=== PATIENT | female | born 1965 | race Caucasian/White ===

== ENCOUNTER 2021-10-03 17:21 | Observation (INO) | payer SELFPAY ==
[~2021-10-03] VITALS: Ht 157.5 cm; Wt 56.9 kg
--- NOTE | 2021-10-03 18:52 | ED Neurological Problem ---
General Chief Complaint: Neuro-Stroke Like Symptoms Stated Complaint: CONFUSION - SLURRED SPEECH Nursing Triage Note: PT CO OF CONFUSION, SPEECH SLOW AND IMPAIRED AT TIMES, PT HAS NO TASTE AT THIS X. PT WAS UNABLE TO WRITE NAME AT [facility]. STATES HAS BEEN SLEEPING ALOT. PT TESTED NEG COVID AT [facility] TODAY Source: patient Exam Limitations: no limitations History of Present Illness Date Seen by Provider: Oct 03, 2021 Time Seen by Provider: 18:30 Initial Comments Patient is a 56-year-old female who appears much older than stated age presents to the emergency department with her sister chief complaint of feeling "not right", confused, loss of taste a week to 10 days ago. She lives alone. She never sees doctors. She takes no daily medications. Her sister and she relate a story that she was at normal baseline function 3 weeks to 1 month ago and the sister called her and she was complaining of the above-stated symptoms. Since that time the sisters been trying to get her to seek medical care but has not been able to coordinate it. She states the more she is seeing her the more confused and acting not like her normal self she appears. [place] and the patient was found after his sister looked everywhere sitting on the ground in front of a truck. She states she has these "staring spells". Patient denies any headache. She did have back pain the night before all the symptoms started. She is a smoker. Occasionally smokes marijuana. No alcohol use. Previous section is her only surgery. Allergic to aspirin "it makes me bleed". Sister states she was tested for COVID at [facility] earlier today however they do not know the results. Sister tested herself this morning and the patient also states she tested herself a week ago and it was negative. She is not vaccinated. No shortness of breath, cough, fevers. No abdominal pain nausea vomiting diarrhea. No urinary complaints. No rashes or swelling. All other review of systems reviewed and negative except as stated. Timing/Duration: other (3 weeks) Severity: moderate Associated Symptoms: confusion, slurred speech ("speech not right") Allergies and Home Medications Allergies Coded Allergies: aspirin (Verified Allergy, Unknown, 10/03/21) Patient Home Medication List Home Medication List Reviewed: Yes Review of Systems Review of Systems Constitutional: see HPI Eyes: No Symptoms Reported Ears, Nose, Mouth, Throat: no symptoms reported Respiratory: no symptoms reported Cardiovascular: no symptoms reported Gastrointestinal: no symptoms reported Genitourinary: no symptoms reported Musculoskeletal: back pain Skin: no symptoms reported Psychiatric/Neurological: Cognitive Dysfunction All Other Systems Reviewed Negative Unless Noted: Yes Past Uufwmwb-Qffghu-Qmjeoo Hx Patient Social History Tobacco Use?: Yes Tobacco type used: Cigarettes Smoking Status: Current Everyday Smoker Substance use?: Yes Substance type: Marijuana Substance frequency: Once in a while Alcohol Use?: No Pt feels they are or have been: No Physical Exam Vital Signs Vital Signs - First Documented 10/03/21 17:35 Temp 36.9 Pulse 81 Resp 18 B/P (MAP) 132/94 (107) Pulse Ox 100 Capillary Refill : Less Than 3 Seconds Height, Weight, BMI Height: '" Weight: lbs. oz. kg; 23.00 BMI Method: General Appearance: WD/WN, no apparent distress, thin HEENT: PERRL/EOMI Neck: full range of motion, supple Respiratory: lungs clear, normal breath sounds, no respiratory distress, no accessory muscle use Cardiovascular: regular rate, rhythm Gastrointestinal: normal bowel sounds, non tender, soft Extremities: normal range of motion, non-tender, normal inspection, no pedal edema Neurologic/Psychiatric: reel winder II-XII nml as tested, alert, oriented x 3, other (flat affect - takes a few seconds for her to answer questions (sister states this is not like her normal affect)) Crainal Nerves: normal hearing, normal speech, PERRL; No abnormal eye position, No facial asymmetry, No facial droop, No facial weakness; tongue deviation to R (minimal) Coordination/Gait: normal gait Motor/Sensory: no motor deficit, no sensory deficit, no pronator drift Skin: normal color, warm/dry, other (slight swelling to dorsum of right foot with macular erythematous rash noted (tinea?). lesser amount of swelling and serythema noted to the dorsum of the left foot. Both areas nontender) Stroke NIH Stroke Scale Assessment Select: Initial Level of Consciousness: 0=Alert (0), Level of Consciousness- Questions: 0=Answers both month/age (0), LOC Commands: 0=Performs both tasks (0), Gaze: Normal (0), Visual Carlson: 0=No visual loss (0), Facial Movement (Facial Paresis): 0=Normal symmetrical mnt (0), Motor Function-Arms Right: 0=No drift (0), Motor Function-Arms Left: 0=No drift (0), Motor Function-Legs Right: 0=No drift (0), Motor Function-Legs Left: 0=No drift (0), Sensory: 0=Normal:no loss (0), Best Language: 0=No aphasia (0), Dysarthria: 0=Normal (0), Total: 0 Progress/Results/Core Measures Results/Orders Lab Results Laboratory Tests Test 10/03/21 17:34 10/03/21 18:10 10/03/21 18:53 10/03/21 19:36 Range/Units Urine Color YELLOW Urine Clarity CLEAR Urine pH 5.5 5-9 Urine Specific Carlisle 1.015 L 1.016-1.022 Urine Protein NEGATIVE NEGATIVE Urine Glucose (UA) NEGATIVE NEGATIVE Urine Ketones NEGATIVE NEGATIVE Urine Nitrite NEGATIVE NEGATIVE Urine Bilirubin NEGATIVE NEGATIVE Urine Urobilinogen 0.2 < = 1.0 MG/DL Urine Leukocyte Esterase NEGATIVE NEGATIVE Urine RBC (Auto) NEGATIVE NEGATIVE Urine RBC NONE /HPF Urine WBC RARE /HPF Urine Squamous Epithelial Cells 2-5 /HPF Urine Crystals NONE /LPF Urine Bacteria FEW H /HPF Urine Casts NONE /LPF Urine Mucus SMALL H /LPF Urine Culture Indicated YES White Blood Count 9.6 4.3-11.0 10^3/uL Red Blood Count 4.31 3.80-5.11 10^6/uL Hemoglobin 14.2 11.5-16.0 g/dL Hematocrit 44 35-52 % Mean Corpuscular Volume 103 H 80-99 fL Mean Corpuscular Hemoglobin 33 25-34 pg Mean Corpuscular Hemoglobin Concent 32 32-36 g/dL Red Cell Distribution Width 13.4 10.0-14.5 % Platelet Count 339 130-400 10^3/uL Mean Platelet Volume 11.0 9.0-12.2 fL Immature Granulocyte % (Auto) 0 % Neutrophils (%) (Auto) 58 42-75 % Lymphocytes (%) (Auto) 30 12-44 % Monocytes (%) (Auto) 7 0-12 % Eosinophils (%) (Auto) 3 0-10 % Basophils (%) (Auto) 1 0-10 % Neutrophils # (Auto) 5.6 1.8-7.8 10^3/uL Lymphocytes # (Auto) 2.9 1.0-4.0 10^3/uL Monocytes # (Auto) 0.7 0.0-1.0 10^3/uL Eosinophils # (Auto) 0.3 0.0-0.3 10^3/uL Basophils # (Auto) 0.1 0.0-0.1 10^3/uL Immature Granulocyte # (Auto) 0.0 0.0-0.1 10^3/uL Glucometer 95 70-110 MG/DL Prothrombin Time 13.7 12.2-14.7 SEC INR Comment 1.0 0.8-1.4 Activated Partial Thromboplast Time 32 24-35 SEC D-Dimer <= 0.27 0.00-0.49 UG/ML Sodium Level 142 135-145 MMOL/L Potassium Level 4.0 3.6-5.0 MMOL/L Chloride Level 105 98-107 MMOL/L Carbon Dioxide Level 25 21-32 MMOL/L Anion Gap 12 5-14 MMOL/L Blood Urea Nitrogen 9 7-18 MG/DL Creatinine 0.73 0.60-1.30 MG/DL Estimat Glomerular Filtration Rate 97 BUN/Creatinine Ratio 12 Glucose Level 87 70-105 MG/DL Calcium Level 10.4 H 8.5-10.1 MG/DL Corrected Calcium 10.2 H 8.5-10.1 MG/DL Total Bilirubin 0.3 0.1-1.0 MG/DL Aspartate Amino Transf (AST/SGOT) 17 5-34 U/L Alanine Aminotransferase (ALT/SGPT) 17 0-55 U/L Alkaline Phosphatase 110 40-136 U/L Troponin I 0.396 *H <0.028 NG/ML Total Protein 7.8 6.4-8.2 GM/DL Albumin 4.3 3.2-4.5 GM/DL My Orders Orders - LORA NOVAK MD Cbc With Automated Diff (10/03/21 18:44) Protime With Inr (10/03/21 18:44) Partial Thromboplastin Time (10/03/21 18:44) Comprehensive Metabolic Panel (10/03/21 18:44) Fibrin Degradation Products (10/03/21 18:44) Troponin I Bakari (10/03/21 18:44) Ua Culture If Indicated (10/03/21 18:44) Chest 1 View, Ap/Pa Only (10/03/21 18:44) Ekg Tracing (10/03/21 18:44) Nothing By Mouth (10/03/21 Dinner) Accucheck Stat ONCE (10/03/21 18:44) Ed Iv/Invasive Line Start (10/03/21 18:44) Ed Iv/Invasive Line Start (10/03/21 18:44) Vital Signs Stroke Patient Q15M (10/03/21 18:44) Ct Head Wo-R/O Stroke (10/03/21 18:44) O2 (10/03/21 18:44) Intake & Output 06,14,22 (10/03/21 18:44) Monitor-Rhythm Ecg Trace Only (10/03/21 18:44) Dysphagia Screening Tool Q10MX1 (10/03/21 18:44) Post Thrombolytic Adminstratio (10/03/21 18:44) Lipid Panel (10/04/21 06:00) Urine Culture (10/03/21 17:34) Vital Signs/I&O 10/03/21 17:35 Temp 36.9 Pulse 81 Resp 18 B/P (MAP) 132/94 (107) Pulse Ox 100 Blood Pressure Mean: 107 Progress Progress Note #1: Time: 22:47 Progress Note Attempted to get recommendations about treatment/admission with Dr. Estes at [facility] in [place]. I spoke with her at approximately 10:15 PM. She states that she believes the patient would best be served at a tertiary care center. Call was placed to , pending return call at this time. Patient's labs all look good except she has an isolated elevated troponin at 0.396. The patient had previously denied chest pain, shortness of breath etc. She has no significant findings on EKG, normal sinus rhythm at 74 bpm. Q waves noted in the septal leads but no ST segment elevation or depression or ectopy. Her vital signs have all been stable. She takes no daily medications, she is allergic to aspirin. Aspirin was not given. We have been giving her updates as we have been calling various facilities for further recommendations and plan of care. Progress Note #2: Time: 23:56 Progress Note Discussed with neurosurgeon Dr. Lakhani at 2313. He states that he will have his tumor coordinator reach out to [facility] tomorrow. We are faxing a facesheet with contact information to [facility]. He did ask if we could possibly do CTs of her chest abdomen and pelvis with contrast to help expedite work-up. I discussed the case with Dr. Patten on for the hospitalist service, will admit her for this purpose as well as to trend her troponin, keep her on telemetry and further evaluation. Patient is comfortable with this plan of care. We will also have health care social worker see her. Initial ECG Impression Date: Oct 03, 2021 Initial ECG Impression Time: 18:51 Initial ECG Rate: 74 Initial ECG Rhythm: Normal Sinus Initial ECG Intervals: Normal Comment No ectopy, no ST segment elevation or depression is noted. Q waves in leads V1 and V2 Diagnostic Imaging Diagonstic Imaging: CT Comments [facility] [place] NAME: MARICARMEN CHURCHILL [facility] REC#: [id number] PT STATUS: REG ER : 1965 PHYSICIAN: LOAR NOVAK MD ADMIT DATE: 10/03/21/ER Signed Date of Exam:10/03/21 CT HEAD WO-R/O STROKE INDICATION: Altered mental status and abnormal speech and lethargy. TECHNIQUE: Multiple contiguous axial images were obtained through the brain without the use of intravenous contrast. Auto Exposure Controls were utilized during the CT exam to meet ALARA standards for radiation dose reduction. There is no prior study for comparison. FINDINGS: There is an area of inhomogeneous mass effect in the left periventricular white matter suspicious for a neoplastic lesion. This area measured about 3.9 x 2.2 cm in the axial plane. There is some mild surrounding vasogenic edema. There is slight midline shift. There is no subdural or epidural collection. There is no hemorrhage. There is no hyperdense vessel sign. Calvarial windows are unremarkable. IMPRESSION: There is a mass lesion in the right periventricular region as described above with some mild vasogenic edema. The finding is worrisome for neoplasm. Recommend MRI brain pre and post IV contrast for further characterization. There is no intracranial hemorrhage. Dictated by: Dictated on workstation # [id number] Dict: 10/03/211913 Trans: 10/03/211938 [id number] Interpreted by: MARIA ALEJANDRA MARQUEZ MD Electronically signed by: MARIA ALEJANDRA MARQUEZ MD 10/03/211938 Diagonstic Imaging: Xray Plain Films/CT/US/NM/MRI: chest Comments [facility] [place] NAME: MARICARMEN CHURCHILL [facility] REC#: [id number] PT STATUS: REG ER : 1965 PHYSICIAN: LORA NOVAK MD ADMIT DATE: 10/03/21/ER Signed Date of Exam:10/03/21 CHEST 1 VIEW, AP/PA ONLY INDICATION: Stroke Frontal chest obtained at 0703 p.m. Heart and mediastinal silhouette are normal in appearance. The lungs are clear. There is no pneumothorax or pleural fluid. IMPRESSION: Negative chest. Dictated by: Dictated on workstation # [id number] Dict: 10/03/211912 Trans: 10/03/211938 [facility] [id number] Interpreted by: MARIA ALEJANDRA MARQUEZ MD Electronically signed by: MARIA ALEJANDRA MARQUEZ MD 10/03/211938 Departure Communication (Admissions) Time/Spoke to Admitting Phy: 23:[address] Patten Impression Primary Impression: Brain tumor Disposition: ADMITTED INPATIENT Condition: Stable Admissions Decision to Admit Reason: Admit from ER (General) Decision to Admit/Date: Oct 04, 2021 Time/Decision to Admit Time: 00:01 Departure-Patient Inst. Referrals: NO,LOCAL PHYSICIAN (PCP/Family) Primary Care Physician LORA NOVAK MD Oct 03, 2021 18:52
[2021-10-03 19:08] LABS: BILIRUBIN,URINE NEGATIVE (NEGATIVE); CLARITY,URINE CLEAR; COLOR,URINE YELLOW; GLUCOSE, URINE (UA) NEGATIVE (NEGATIVE); KETONES,URINE NEGATIVE (NEGATIVE); LEUKOCYTE ESTERASE ,URINE NEGATIVE (NEGATIVE); NITRITE,URINE NEGATIVE (NEGATIVE); PH,URINE 5.5 (5-9); PROTEIN,URINE NEGATIVE (NEGATIVE)
--- NOTE | 2021-10-03 19:15 | Diagnostic Imaging Report ---
INDICATION: Stroke Frontal chest obtained at 0703 p.m. Heart and mediastinal silhouette are normal in appearance. The lungs are clear. There is no pneumothorax or pleural fluid. IMPRESSION: Negative chest. Dictated by: Dictated on workstation # [id number]
--- NOTE | 2021-10-03 19:21 | Diagnostic Imaging Report ---
INDICATION: Altered mental status and abnormal speech and lethargy. TECHNIQUE: Multiple contiguous axial images were obtained through the brain without the use of intravenous contrast. Auto Exposure Controls were utilized during the CT exam to meet ALARA standards for radiation dose reduction. There is no prior study for comparison. FINDINGS: There is an area of inhomogeneous mass effect in the left periventricular white matter suspicious for a neoplastic lesion. This area measured about 3.9 x 2.2 cm in the axial plane. There is some mild surrounding vasogenic edema. There is slight midline shift. There is no subdural or epidural collection. There is no hemorrhage. There is no hyperdense vessel sign. Calvarial windows are unremarkable. IMPRESSION: There is a mass lesion in the right periventricular region as described above with some mild vasogenic edema. The finding is worrisome for neoplasm. Recommend MRI brain pre and post IV contrast for further characterization. There is no intracranial hemorrhage. Dictated by: Dictated on workstation # [id number]
[2021-10-03 19:28] LABS: BASOPHILS # (AUTO) 0.1 10^3/uL (0.0-0.1); BASOPHILS % (AUTO) 1 % (0-10); EOSINOPHILS # (AUTO) 0.3 10^3/uL (0.0-0.3); EOSINOPHILS % (AUTO) 3 % (0-10); HEMATOCRIT 44 % (35-52); HEMOGLOBIN 14.2 g/dL (11.5-16.0); LYMPHOCYTES # (AUTO) 2.9 10^3/uL (1.0-4.0); LYMPHOCYTES % (AUTO) 30 % (12-44); MEAN CORPUSCULAR HEMOGLOBIN 33 pg (25-34); MEAN CORPUSCULAR HGB CONC 32 g/dL (32-36); MEAN CORPUSCULAR VOLUME 103 fL (80-99); MONOCYTES # (AUTO) 0.7 10^3/uL (0.0-1.0); MONOCYTES % (AUTO) 7 % (0-12); NEUTROPHILS # (AUTO) 5.6 10^3/uL (1.8-7.8); NEUTROPHILS % (AUTO) 58 % (42-75); PLATELET COUNT 339 10^3/uL (130-400); WHITE BLOOD COUNT 9.6 10^3/uL (4.3-11.0)
[2021-10-03 19:29] LABS: BACTERIA,URINE FEW /HPF; WBC,URINE RARE /HPF
[2021-10-03 20:05] LABS: FIBRIN DEGRADATION PRODUCTS <= 0.27 UG/ML (0.00-0.49); PARTIAL THROMBOPLASTIN TIME 32 SEC (24-35); PROTHROMBIN TIME PATIENT 13.7 SEC (12.2-14.7)
[2021-10-03 20:06] LABS: ALBUMIN 4.3 GM/DL (3.2-4.5); BILIRUBIN,TOTAL 0.3 MG/DL (0.1-1.0); CALCIUM 10.4 MG/DL (8.5-10.1); CREATININE SERUM 0.73 MG/DL (0.60-1.30); TOTAL PROTEIN 7.8 GM/DL (6.4-8.2)
[2021-10-04 00:55] VITALS: BP 101/64
[2021-10-04] MEDS ORDERED: diphenhydrAMINE 25 MG TAB (BENADRYL) PO PRN (01:30)
[2021-10-04] MEDS ORDERED: ACETAMINOPHEN 500 MG TAB (TYLENOL) PO PRN (01:30)
[2021-10-04] MEDS ORDERED: ONDANSETRON 4 MG/2 ML (SDV) Z0FRAN IV PRN (01:30)
[2021-10-04] MEDS ORDERED: ALPRAZolam 0.25 MG (XANAX) TAB PO PRN (01:30)
[2021-10-04] MEDS: NS IV 1000 ML 1,000 ML IV SCH ×3 (01:34→13:28)
[2021-10-04 02:26] VITALS: BP 132/94
[2021-10-04] MEDS ORDERED: RT-ALBUTEROL SULF 2.5 MG/3 ML PRE-MIX VIAL INH PRN (02:45)
[2021-10-04 04:01] VITALS: BP 94/51
[2021-10-04 07:53] VITALS: BP 94/63
[2021-10-04] MEDS ORDERED: NS 100 ML (IVPB) BAG IV ONE (09:45)
[2021-10-04] MEDS ORDERED: CATHETER FLUSH 10 ML SYR IV PRN (09:45)
[2021-10-04] MEDS ORDERED: IOHEXOL 350 MG/ML 100 ML (OMNIPAQUE 350) VIAL IV ONE (09:45)
[2021-10-04] MEDS ORDERED: HOLD METFORMIN - RECEIVED CONTRAST 20 ML VIAL IV SCH (09:45)
[2021-10-04 11:23] VITALS: BP 108/70
--- NOTE | 2021-10-04 11:31 | Diagnostic Imaging Report ---
EXAMINATION: CT chest with intravenous contrast, CT abdomen and pelvis without and with intravenous contrast. TECHNIQUE: Pre and post intravenous contrast axial imaging of the abdomen and pelvis and post contrast axial imaging of the chest were performed. All CT scans use one or more of the following dose optimizing techniques: automated exposure control, MA and/or KvP adjustment based on patient size and exam type or iterative reconstruction. HISTORY: Brain mass. COMPARISON: None available. FINDINGS: There is no edema or pneumonia. No pleural effusion. No pneumothorax. No suspicious nodules. There is no axillary or supraclavicular lymphadenopathy. There is no mediastinal lymphadenopathy. Heart size is normal. There are mild coronary artery calcifications. No pericardial effusion. Aorta is normal in caliber. The liver is normal without focal lesion. There is no biliary ductal dilation. Gallbladder is normal. Pancreas is normal. Spleen is normal. Adrenal glands are normal. The kidneys are normal. There is no hydronephrosis. Urinary bladder is normal. Bowel is normal in caliber without obstruction or inflammation. No free fluid or air. No abdominal or pelvic lymphadenopathy. Aorta is normal in caliber without aneurysm. There are no suspicious osseus lesions. IMPRESSION: 1. No malignancy in the chest, abdomen or pelvis. Dictated by: Dictated on workstation # [id number]
--- NOTE | 2021-10-04 14:27 | Discharge Inst-Simple/Standard ---
Discharge Inst-Standard Patient Instructions/Follow Up Plan of Care/Instructions/FU: Please continue to take your medications as written. Please follow up with your primary care doctor to follow up this hospital stay. Activity as Tolerated: Yes Discharge Diet: No Restrictions Return to The Hospital For: Chest pain, shortness of breath, fever, weakness, if you feel you are getting worse. JARED SANFORD MD Oct 04, 2021 14:27
[2021-10-04 15:34] VITALS: BP 108/70
--- NOTE | 2021-10-04 15:52 | Short Stay Summary-Hospitalist ---
History of Present Illness HPI/Chief Complaint Patient is a 56-year-old female with no past medical history who presented to the emergency department due to confusion. Her sister provides most of the history. She states over the past 3 to 4 weeks she has just been acting not right. She has been having difficulty with word finding. Patient has not been to a doctor in quite some time and so her sister was helping her get established but because of her mentation she brought her to an urgent care yesterday. Urgent care was concerned that she had had a stroke so referred her to the emergency department. CT of her head revealed a mass. She denies any known history of malignancy. She reports feeling about the same today. Lab work-up was done as well which revealed a slightly elevated troponin. ER discussed the case with [facility] neurosurgery and neurosurgery who recommended admission here as no urgent need for neurosurgical intervention. Patient has no complaints to me and is hopeful to be able to go home. Source: patient Date Seen 10/04/21 Time Seen by a Provider: 15:47 Attending Physician No,Local Physician PCP Admitting Physician: Ghada Patten MD Attending Physician: Ghada Patten MD Referring Physician Date of Admission Oct 03, 2021 at 23:50 Home Medications & Allergies Home Medications Reviewed patient Home Medication Reconciliation performed by pharmacy medication reconciliations graphics edit technician and/or nursing. Patients Allergies have been reviewed. Allergies Allergies Coded Allergies aspirin (Verified Allergy, Unknown, 10/03/21) Past Olgmfca-Srsjyf-Iypmmi Hx Patient Social History Tobacco Use?: Yes Tobacco type used: Cigarettes Smoking Status: Current Everyday Smoker Use of E-Cig and/or Vaping dev: No E-Cig or Vaping type used: Marijuana Use of E-Cig and/or Vaping Miguel: Never a User Substance use?: Yes Substance type: Marijuana Substance frequency: Couple times a week Alcohol Use?: No Pt feels they are or have been: No Immunizations Up To Date Tetanus Booster (TDap): Unknown Current Status status: No status: No Advance Directives: No Communicates: Verbally Primary Language: Irish Preferred Spoken Language: Irish Is interpretation needed?: No Implanted or Applied Medical D: None Past Medical History Surgeries: Section Family Medical History Reviewed Nursing Family Hx Cancer (Aunt with breast cancer) Review of Systems Constitutional: No chills, No fever Respiratory: No cough, No short of breath Cardiovascular: No chest pain, No edema, No Hx of Intervention, No palpitations Gastrointestinal: No abdominal pain, No constipation, No diarrhea Genitourinary: no symptoms reported Musculoskeletal: no symptoms reported Skin: no symptoms reported Psychiatric/Neurological: See HPI Physical Exam Physical Exam Vital Signs Vital Signs - First Documented 10/03/21 10/03/21 10/04/21 17:35 23:57 02:26 Temp 36.9 Pulse 81 Resp 18 B/P (MAP) 132/94 (107) Pulse Ox 100 O2 Delivery Room Air FiO2 21 Capillary Refill : Less Than 3 Seconds Height, Weight, BMI Height: '" Weight: lbs. oz. kg; 22.93 BMI Method: General Appearance: No Apparent Distress, WD/WN HEENT: PERRL/EOMI, Moist Mucous Membranes; No Scleral Icterus (L), No Scleral Icterus (R) Neck: Normal Inspection, Supple Respiratory: Lungs Clear, No Accessory Muscle Use, No Respiratory Distress Cardiovascular: Regular Rate, Rhythm, No Murmur, Normal Peripheral Pulses Gastrointestinal: Normal Bowel Sounds, Non Tender, Soft Extremity: Normal Capillary Refill, No Calf Tenderness, No Pedal Edema Neurologic/Psychiatric: Alert, Oriented x3, Normal Mood/Affect Skin: Normal Color, Warm/Dry Results Results/Procedures Labs Laboratory Tests 10/03/21 18:10 10/03/21 19:36 Patient resulted labs reviewed. Imaging: Reviewed Imaging Report Imaging [facility] [place] [place], [place] NAME: ASHLEY CHURCHILL [facility] REC#: [id number] PT STATUS: REG ER : 1965 PHYSICIAN: LORA NOVAK MD ADMIT DATE: 10/03/21/ER Signed Date of Exam:10/03/21 CHEST 1 VIEW, AP/PA ONLY INDICATION: Stroke Frontal chest obtained at 0703 p.m. Heart and mediastinal silhouette are normal in appearance. The lungs are clear. There is no pneumothorax or pleural fluid. IMPRESSION: Negative chest. Dictated by: Dictated on workstation # [id number] Dict: 10/03/211912 Trans: 10/03/21 1939 SHELLIE [id number] Interpreted by: MARIA ALEJANDRA MARQUEZ MD Electronically signed by: MARIA ALEJANDRA MARQUEZ MD 10/03/211938 [facility] [place] NAME: ASHLEY CHURCHILL [facility] REC#: [id number] PT STATUS: REG ER : 1965 PHYSICIAN: LORA NOVAK MD ADMIT DATE: 10/03/21/ER Signed Date of Exam:10/03/21 CT HEAD WO-R/O STROKE INDICATION: Altered mental status and abnormal speech and lethargy. TECHNIQUE: Multiple contiguous axial images were obtained through the brain without the use of intravenous contrast. Auto Exposure Controls were utilized during the CT exam to meet ALARA standards for radiation dose reduction. There is no prior study for comparison. FINDINGS: There is an area of inhomogeneous mass effect in the left periventricular white matter suspicious for a neoplastic lesion. This area measured about 3.9 x 2.2 cm in the axial plane. There is some mild surrounding vasogenic edema. There is slight midline shift. There is no subdural or epidural collection. There is no hemorrhage. There is no hyperdense vessel sign. Calvarial windows are unremarkable. IMPRESSION: There is a mass lesion in the right periventricular region as described above with some mild vasogenic edema. The finding is worrisome for neoplasm. Recommend MRI brain pre and post IV contrast for further characterization. There is no intracranial hemorrhage. Dictated by: Dictated on workstation # [id number] Dict: 10/03/211913 Trans: 10/03/211938 [id number] Interpreted by: MARIA ALEJANDRA MARQUEZ MD Electronically signed by: MARIA ALEJANDRA MARQUEZ MD 10/03/211938 [facility] [place], [place] NAME: ASHLEY CHURCHILL [facility] REC#: [id number] PT STATUS: ADM Desiree : 1965 PHYSICIAN: GHADA PATTEN MD ADMIT DATE: 10/03/21/4TH Draft Date of Exam:10/04/21 CT CHEST-PELVIS W/ABDOMEN W WO EXAMINATION: CT chest with intravenous contrast, CT abdomen and pelvis without and with intravenous contrast. TECHNIQUE: Pre and post intravenous contrast axial imaging of the abdomen and pelvis and post contrast axial imaging of the chest were performed. All CT scans use one or more of the following dose optimizing techniques: automated exposure control, MA and/or KvP adjustment based on patient size and exam type or iterative reconstruction. HISTORY: Brain mass. COMPARISON: None available. FINDINGS: There is no edema or pneumonia. No pleural effusion. No pneumothorax. No suspicious nodules. There is no axillary or supraclavicular lymphadenopathy. There is no mediastinal lymphadenopathy. Heart size is normal. There are mild coronary artery calcifications. No pericardial effusion. Aorta is normal in caliber. The liver is normal without focal lesion. There is no biliary ductal dilation. Gallbladder is normal. Pancreas is normal. Spleen is normal. Adrenal glands are normal. The kidneys are normal. There is no hydronephrosis. Urinary bladder is normal. Bowel is normal in caliber without obstruction or inflammation. No free fluid or air. No abdominal or pelvic lymphadenopathy. Aorta is normal in caliber without aneurysm. There are no suspicious osseus lesions. IMPRESSION: 1. No malignancy in the chest, abdomen or pelvis. Dictated on workstation # [id number] Dict: 10/04/21 1125 Trans: 10/04/21 1131 [id number] Interpreted by: MONROE PAULINO MD Electronically signed by: Short Stay Diagnosis Discharge Diagnosis-Short Stay Admission Diagnosis New brain lesion Final Discharge Diagnosis New brain lesion Conclusion Plan New brain lesion CT with brain mass CT Chest/Abd/Pelvis without any further evidence of malignancy Clinically stable I called and discussed with [facility] regarding findings and they recommend DC home, sister plans to assist patient with follow up I called and spoke with [facility] who she is going to follow up with on 10/17 Elevated troponin Trended down EKG NSR with no ST elevation Discussed with Cardiology who recommends no further workup due to need to address brain lesion first JARED SANFORD MD Oct 04, 2021 15:52
[2021-10-04] MEDS ORDERED: MUPIROCIN 2% OINT 22 GM (BACTROBAN) TUBE NSEACH SCH (21:00)
== END 2021-10-04 15:50 | disposition home or self-care (01) ==
LOC: ER 17:24 → EDLOC 23:50 → 4TH 23:50 → INTOOBSV 23:50 → 4TH 10-04 15:47 → UNDODISOB 10-04 15:48
PROVIDERS: ADMIT Internal Medicine; ATTEND Internal Medicine
DX: G93.89 Other specified disorders of brain (principal); F17.210 Nicotine dependence, cigarettes, uncomplicated; R77.8 Other specified abnormalities of plasma proteins
CPT/HCPCS: 36415; 70450; 71045; 71260; 74178; 80053; 80061; 81000; 82947; 84484; 85025; 85379; 85610; 85730; 87088; 93005; 93041; 96374; G0378

== ENCOUNTER 2022-01-02 18:15 | Emergency (ER) | payer MEDICAID ==
[~2022-01-02] VITALS: Ht 155.7 cm; Wt 56.9 kg
[2022-01-02 18:36] LABS: BASOPHILS % (AUTO) 0 % (0-10); EOSINOPHILS % (AUTO) 0 % (0-10); HEMATOCRIT 42 % (35-52); HEMOGLOBIN 14.6 g/dL (11.5-16.0); LYMPHOCYTES # (AUTO) 0.1 10^3/uL (1.0-4.0); LYMPHOCYTES % (AUTO) 1 % (12-44); MEAN CORPUSCULAR HEMOGLOBIN 36 pg (25-34); MEAN CORPUSCULAR HGB CONC 35 g/dL (32-36); MEAN CORPUSCULAR VOLUME 103 fL (80-99); MEAN PLATELET VOLUME 9.3 fL (9.0-12.2); MONOCYTES # (AUTO) 0.2 10^3/uL (0.0-1.0); MONOCYTES % (AUTO) 2 % (0-12); NEUTROPHILS # (AUTO) 9.2 10^3/uL (1.8-7.8); NEUTROPHILS % (AUTO) 95 % (42-75); PLATELET COUNT 165 10^3/uL (130-400); WHITE BLOOD COUNT 9.7 10^3/uL (4.3-11.0)
[2022-01-02 18:43] LABS: ABG BASE EXCESS -0.6 MMOL/L (-2.5-2.5); ABG OXYGEN SATURATION 96 % (94-100); ABG PCO2 31 MMHG (35-45); ABG PH 7.48 (7.37-7.43); ABG PO2 64 MMHG (79-93); ABG TCO2 23.6 MMOL/L (21.0-31.0)
[2022-01-02 18:44] LABS: PATIENT TEMP 38.6; VENTILATOR NO
[2022-01-02 18:45] LABS: ALBUMIN 3.8 GM/DL (3.2-4.5); POTASSIUM 3.8 MMOL/L (3.6-5.0)
[2022-01-02 18:46] LABS: CALCIUM 9.7 MG/DL (8.5-10.1)
[2022-01-02 18:48] LABS: PROTHROMBIN TIME PATIENT 13.8 SEC (12.2-14.7); TOTAL PROTEIN 7.1 GM/DL (6.4-8.2)
[2022-01-02 18:51] LABS: CREATININE SERUM 0.6 MG/DL (0.60-1.30)
--- NOTE | 2022-01-02 18:59 | ED Respiratory ---
General Chief Complaint: Respiratory Problems Stated Complaint: SOA/COUGH/WEAK/FATIGUE Nursing Triage Note: PT AMB TO [facility] 7 WITH SISTER WITH COMPLAINT OF SOA AND WEAKNESS. PT HAS HX OF STAGE 4 BRAIN CANCER. Source: patient, family Exam Limitations: no limitations History of Present Illness Date Seen by Provider: Jan 02, 2022 Time Seen by Provider: 18:55 Initial Comments to ER by private vehicle accompanied by her sister who is her caregiver with reports of shortness of breath and general weakness. She has a diagnosis of brain cancer. This was diagnosed in October of this year at [facility] and she was then referred to [facility], this was a high grade glioma. She is on chemotherapy with Dr. Buck. They stopped her steroids after completion of chemotherapy 2 weeks ago and she just reinitiated them about 1 week ago. She is brought in today by her sister with concern of pneumonia because she was coughing and she goes outside at night when in school to smoke cigarettes at 2 or 3 in the morning and she is worried that she has pneumonia. When I can get the sister to allow the patient to talk for herself the patient does report that she has increasing right-sided weakness and cough. Timing/Duration: constant Severity: moderate Associated Symptoms: cough Allergies and Home Medications Allergies Coded Allergies: aspirin (Verified Allergy, Unknown, 10/03/21) Patient Home Medication List Home Medication List Reviewed: Yes No Active Prescriptions or Reported Meds Review of Systems Review of Systems Constitutional: see HPI EENTM: see HPI Respiratory: see HPI, cough Cardiovascular: no symptoms reported Genitourinary: no symptoms reported Musculoskeletal: no symptoms reported Skin: no symptoms reported Psychiatric/Neurological: No Symptoms Reported Hematologic/Lymphatic: No Symptoms Reported Past Khervyx-Lfzmna-Vpnbyx Hx Patient Social History Tobacco Use?: Yes Tobacco type used: Cigarettes Smoking Status: Current Everyday Smoker Use of E-Cig and/or Vaping dev: No Substance use?: No Alcohol Use?: No Pt feels they are or have been: No Past Medical History Surgery/Hospitalization HX: c section, broken arm Section Family Medical History Cancer Physical Exam Vital Signs - First Documented 01/02/22 18:22 Pulse 92 Resp 16 B/P (MAP) 123/77 (92) Pulse Ox 97 O2 Delivery Room Air Capillary Refill : Less Than 3 Seconds Height: '" Weight: lbs. oz. kg; 23.00 BMI Method: General Appearance: WD/WN, no apparent distress, other (No distress. Walks in with standby assistance of her sister. Oxygen saturation 95-97% on room air.) Eyes: Bilateral Eye Normal Inspection, Bilateral Eye PERRL, Bilateral Eye EOMI HEENT: PERRL/EOMI, normal ENT inspection, other ([place]ock face presumably from her steroids. There is some droop of the right lower face.) Neck: non-tender, full range of motion Respiratory: no respiratory distress, no accessory muscle use Gastrointestinal: normal bowel sounds, non tender, soft Neurologic/Psychiatric: alert, other (She is alert. She knows that she is at the hospital in [place] and that the year is 2021 and the month of December. She answers in very brief phrases. She does not have some troubles with word searching.) Skin: normal color, warm/dry Progress/Results/Core Measures Suspected Sepsis SIRS Temperature: Pulse: 92 Respiratory Rate: 16 Laboratory Tests 01/02/22 18:33: White Blood Count 9.7 Blood Pressure 123 /77 Mean: 92 Laboratory Tests 01/02/22 18:33: Creatinine 0.60, INR Comment 1.0, Platelet Count 165, Total Bilirubin 1.0 Results/Orders Lab Results Laboratory Tests Test 01/02/22 18:33 01/02/22 18:41 01/02/22 19:15 01/02/22 20:10 Range/Units White Blood Count 9.7 4.3-11.0 10^3/uL Red Blood Count 4.07 3.80-5.11 10^6/uL Hemoglobin 14.6 11.5-16.0 g/dL Hematocrit 42 35-52 % Mean Corpuscular Volume 103 H 80-99 fL Mean Corpuscular Hemoglobin 36 H 25-34 pg Mean Corpuscular Hemoglobin Concent 35 32-36 g/dL Red Cell Distribution Width 16.6 H 10.0-14.5 % Platelet Count 165 130-400 10^3/uL Mean Platelet Volume 9.3 9.0-12.2 fL Immature Granulocyte % (Auto) 2 % Neutrophils (%) (Auto) 95 H 42-75 % Lymphocytes (%) (Auto) 1 L 12-44 % Monocytes (%) (Auto) 2 0-12 % Eosinophils (%) (Auto) 0 0-10 % Basophils (%) (Auto) 0 0-10 % Neutrophils # (Auto) 9.2 H 1.8-7.8 10^3/uL Lymphocytes # (Auto) 0.1 L 1.0-4.0 10^3/uL Monocytes # (Auto) 0.2 0.0-1.0 10^3/uL Eosinophils # (Auto) 0.0 0.0-0.3 10^3/uL Basophils # (Auto) 0.0 0.0-0.1 10^3/uL Immature Granulocyte # (Auto) 0.2 H 0.0-0.1 10^3/uL Neutrophils % (Manual) 95 % Lymphocytes % (Manual) 2 % Monocytes % (Manual) 2 % Band Neutrophils 1 % Macrocytosis SLIGHT Prothrombin Time 13.8 12.2-14.7 SEC INR Comment 1.0 0.8-1.4 Sodium Level 139 135-145 MMOL/L Potassium Level 3.8 3.6-5.0 MMOL/L Chloride Level 101 98-107 MMOL/L Carbon Dioxide Level 23 21-32 MMOL/L Anion Gap 15 H 5-14 MMOL/L Blood Urea Nitrogen 10 7-18 MG/DL Creatinine 0.60 0.60-1.30 MG/DL Estimat Glomerular Filtration Rate 106 BUN/Creatinine Ratio 17 Glucose Level 95 70-105 MG/DL Calcium Level 9.7 8.5-10.1 MG/DL Corrected Calcium 9.9 8.5-10.1 MG/DL Total Bilirubin 1.0 0.1-1.0 MG/DL Aspartate Amino Transf (AST/SGOT) 19 5-34 U/L Alanine Aminotransferase (ALT/SGPT) 38 0-55 U/L Alkaline Phosphatase 80 40-136 U/L B-Type Natriuretic Peptide 47.8 <100.0 PG/ML Total Protein 7.1 6.4-8.2 GM/DL Albumin 3.8 3.2-4.5 GM/DL Blood Gas Puncture Site L RADIAL Blood Gas Patient Temperature 38.6 Arterial Blood pH 7.48 H 7.37-7.43 Arterial Blood Partial Pressure CO2 31 L 35-45 MMHG Arterial Blood Partial Pressure O2 64 L 79-93 MMHG Arterial Blood HCO3 23 23-27 MMOL/L Arterial Blood Total CO2 23.6 21.0-31.0 MMOL/L Arterial Blood Oxygen Saturation 96 94-100 % Arterial Blood Base Excess -0.6 -2.5-2.5 MMOL/L Eleuterio Test NA Blood Gas Ventilator Setting NO Blood Gas Inspired Oxygen NA SARS-CoV-2 RNA (RT-PCR) Not Detected Not Detecte Urine Color YELLOW Urine Clarity CLEAR Urine pH 7.5 5-9 Urine Specific [place] 1.010 L 1.016-1.022 Urine Protein NEGATIVE NEGATIVE Urine Glucose (UA) NEGATIVE NEGATIVE Urine Ketones NEGATIVE NEGATIVE Urine Nitrite NEGATIVE NEGATIVE Urine Bilirubin NEGATIVE NEGATIVE Urine Urobilinogen 0.2 < = 1.0 MG/DL Urine Leukocyte Esterase NEGATIVE NEGATIVE Urine RBC (Auto) TRACE-I H NEGATIVE Urine RBC 0-2 /HPF Urine WBC NONE /HPF Urine Squamous Epithelial Cells 0-2 /HPF Urine Crystals NONE /LPF Urine Bacteria TRACE /HPF Urine Casts NONE /LPF Urine Mucus NEGATIVE /LPF Urine Culture Indicated NO My Orders Orders - DOLORES BROWN APRN Arterial Blood Gas (01/02/22 18:30) Cbc With Automated Diff (01/02/22 18:30) Comprehensive Metabolic Panel (01/02/22 18:30) Protime With Inr (01/02/22 18:30) Ed Iv/Invasive Line Start (01/02/22 18:30) Ua Culture If Indicated (01/02/22 18:30) Chest Pa/Lat (2 View) (01/02/22 18:30) Ct Head Wo (01/02/22 18:30) Manual Differential (01/02/22 18:33) Bnp [place] (01/02/22 19:04) Covid 19 Inhouse Test (01/02/22 19:04) Blood Culture (01/02/22 19:14) Cefepime Injection (Maxipime Injection) (01/02/22 19:15) Dexamethasone Injection (Decadron Inje (01/02/22 20:30) Lorazepam Injection (Ativan Injection) (01/02/22 20:30) Medications Given in ED Current Medications Medications Dose Ordered Sig/Radha Route Start Time Stop Time Status Last Admin Dose Admin Cefepime HCl 1000 mg/Sodium Chloride 50 ml @ 100 mls/hr ONCE ONCE IV 01/02/22 19:15 01/02/22 19:44 DC 01/02/22 19:46 100 MLS/HR Dexamethasone Sodium Phosphate 8 mg ONCE ONCE IV 01/02/22 20:30 01/02/22 20:31 DC 01/02/22 20:41 8 MG Lorazepam 0.5 mg ONCE PRN IVP 01/02/22 20:30 01/02/22 20:41 0.5 MG Vital Signs/I&O 01/02/22 18:22 Pulse 92 Resp 16 B/P (MAP) 123/77 (92) Pulse Ox 97 O2 Delivery Room Air Capillary Refill : Less Than 3 Seconds Blood Pressure Mean: 92 Departure Communication (Admissions) 192-blood cultures pending cefepime ordered. Discussed with the sister at the bedside if there was mention of surgical intervention for this tumor and the sister reports they were told it was nonoperable. I have spoken with transfer center at [facility], will receive a phone call back and see if we can get her admitted over there where she follows with hematology/oncology Dr. Fisher. 2007-I spoke with a very pleasant Dr. Monteiro from hospitalist services at [facility]. We will arrange transport. Family Conversation NAME: OXANA CHURCHILL MED REC#: [id number] PT STATUS: REG ER : 1965 PHYSICIAN: DOLORES BROWN APRN ADMIT DATE: 01/02/22/ER Draft Date of Exam:01/02/22 CT HEAD WO PROCEDURE: CT head without contrast. TECHNIQUE: Multiple contiguous axial images were obtained through the brain without the use of intravenous contrast. Auto Exposure Controls were utilized during the CT exam to meet ALARA standards for radiation dose reduction. INDICATION: Altered mental status. COMPARISON is made with prior exam of 10/03/2021. FINDINGS: There is a large area of decreased attenuation in the left frontal lobe and left basal ganglia. While this may reflect CVA, the possibility of underlying mass and vasogenic edema certainly cannot be excluded. Compatible with subacute CVA. There is surrounding edema with mass effect on the left lateral ventricle. There are a few millimeters of left right to right midline shift. There is no mass, hemorrhage or extra-axial fluid collection. The calvarium is intact and the mastoid air cells are clear. IMPRESSION: Mass in the left frontal lobe and left basal ganglia with surrounding vasogenic edema, mass effect and midline shift. 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 Further evaluation with gadolinium enhanced MRI is recommended. Dictated on workstation # [id number] Dict: 01/02/221902 Trans: 01/02/221910 [facility] [id number] Interpreted by: CONG BELL MD Electronically signed by: NAME: OXANA CHURCHILL [facility] REC#: [id number] PT STATUS: REG ER : 1965 PHYSICIAN: DOLORES BROWN APRN ADMIT DATE: 01/02/22/ER Draft Date of Exam:01/02/22 CHEST PA/LAT (2 VIEW) HISTORY: Cough and shortness of air TECHNIQUE: 2 views of the chest COMPARISON: 10/03/2021 FINDINGS: Lung volumes are mildly large. There are diffuse interstitial opacities throughout the lungs bilaterally. There is no pleural effusion or pneumothorax. The cardiac silhouette is normal in size. IMPRESSION: 1. Diffuse interstitial opacities, may represent a mild interstitial edema or infection. Dictated on workstation # [id number] Dict: 01/02/221857 Trans: 01/02/221900 [facility] [id number] Interpreted by: BA GARCIA MD Electronically signed by: Impression Primary Impression: Neoplasm causing mass effect on adjacent structures Additional Impressions: Pneumonia Right sided weakness Glioma of ASSIST[employer] Disposition: XFER SHT-TRM HOSP Condition: Stable Departure-Patient Inst. Referrals: NO,LOCAL PHYSICIAN (PCP/Family) Primary Care Physician Scripts No Active Prescriptions or Reported Meds DOLORES BROWN APRN Jan 02, 2022 18:59
--- NOTE | 2022-01-02 19:11 | Diagnostic Imaging Report ---
PROCEDURE: CT head without contrast. TECHNIQUE: Multiple contiguous axial images were obtained through the brain without the use of intravenous contrast. Auto Exposure Controls were utilized during the CT exam to meet ALARA standards for radiation dose reduction. INDICATION: Altered mental status. COMPARISON is made with prior exam of 10/03/2021. FINDINGS: There is a large area of decreased attenuation in the left frontal lobe and left basal ganglia. While this may reflect CVA, the possibility of underlying mass and vasogenic edema certainly cannot be excluded. Compatible with subacute CVA. There is surrounding edema with mass effect on the left lateral ventricle. There are a few millimeters of left right to right midline shift. There is no mass, hemorrhage or extra-axial fluid collection. The calvarium is intact and the mastoid air cells are clear. IMPRESSION: Mass in the left frontal lobe and left basal ganglia with surrounding vasogenic edema, mass effect and midline shift. 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 Further evaluation with gadolinium enhanced MRI is recommended. Dictated by: Dictated on workstation # [id number]
[2022-01-02] MEDS ORDERED: CEFEPIME INJECTION 1,000 MG in NS (IVPB) 50 ML IV ONE (19:15)
[2022-01-02 19:27] LABS: BAND NEUTROPHILS 1 %; LYMPHOCYTES % (MANUAL) 2 %; MONOCYTES % (MANUAL) 2 %; NEUTROPHILS % (MANUAL) 95 %
[2022-01-02 20:17] LABS: BILIRUBIN,URINE NEGATIVE (NEGATIVE); CLARITY,URINE CLEAR; COLOR,URINE YELLOW; GLUCOSE, URINE (UA) NEGATIVE (NEGATIVE); KETONES,URINE NEGATIVE (NEGATIVE); LEUKOCYTE ESTERASE ,URINE NEGATIVE (NEGATIVE); NITRITE,URINE NEGATIVE (NEGATIVE); PH,URINE 7.5 (5-9); PROTEIN,URINE NEGATIVE (NEGATIVE)
[2022-01-02 20:24] LABS: BACTERIA,URINE TRACE /HPF; RBC,URINE 0-2 /HPF; SQUAMOUS EPITHELIAL CELL,UR 0-2 /HPF
[2022-01-02] MEDS ORDERED: LORazepam INJ 2 MG/ML (ATIVAN) VIAL IVP PRN (20:30)
[2022-01-02 23:15] VITALS: BP 113/84
== END 2022-01-02 23:15 | disposition short-term general hospital (02) ==
LOC: EDUNIT# 18:15 → ER 18:19
DX: J18.9 Pneumonia, unspecified organism (principal); C71.9 Malignant neoplasm of brain, unspecified; R53.1 Weakness; F17.210 Nicotine dependence, cigarettes, uncomplicated; Z20.822 Contact with and (suspected) exposure to COVID-19; Z28.310 Unvaccinated for COVID-19
CPT/HCPCS: 36415; 70450; 71046; 80053; 81000; 82805; 83880; 85007; 85027; 85610; 87040; 87636; 99291